=== PATIENT | female | born 1945 | race Caucasian/White ===

== ENCOUNTER → 2016-05-18 | Outpatient (CLI) | payer BC ==
[~2016-05-18] MED LIST: ASPI-650 PO; FURO-93 PO; GABA100C8 PO; LISI40TA PO; OXYC5CAP4 PO; REGADENOSON 0.4 MG/5 ML SYRINGE ONE; TRAM50TA2 PO; VERA240T86 PO
== END | disposition home or self-care (01) ==
LOC: CFH 07:54
PROVIDERS: ATTEND Internal Medicine Cardiovascular Disease
DX: I10 Essential (primary) hypertension (principal); R53.83 Other fatigue; R94.31 Abnormal electrocardiogram [ECG] [EKG]
CPT/HCPCS: 78452; 93017; A9502; J2785

== ENCOUNTER 2018-07-11 10:40 | Day surgery (SDC) | payer MEDICARE ==
[~2018-07-11] VITALS: Ht 168.9 cm; Wt 104.5 kg
[~2018-07-11 10:40] MED LIST changes: +GABA-826 PO; -GABA100C8 PO; +OXYC5CAP2 PO; -OXYC5CAP4 PO; -REGADENOSON 0.4 MG/5 ML SYRINGE ONE; +VERA240T10 PO; -VERA240T86 PO
[2018-07-11 11:24] VITALS: BP 144/85
[2018-07-11] MEDS ORDERED: POTA20TA14 PO (11:43)
[2018-07-11] MEDS ORDERED: RIVA20TA PO (11:43)
[2018-07-11] MEDS ORDERED: LABE100T6 PO (11:43)
[2018-07-11] MEDS ORDERED: HYDR25TA6 PO (11:43)
[2018-07-11] MEDS ORDERED: ASPI81TA45 PO (11:43)
[2018-07-11] MEDS ORDERED: VERA300C2 PO (11:43)
[2018-07-11 12:09] LABS: ANION GAP 6 mmol/L (5-15); CALCIUM 9.1 mg/dL (8.5-10.1); CHLORIDE 107 mmol/L (98-107); CREATININE 0.93 mg/dL (0.55-1.02)
[2018-07-11] MEDS ORDERED: PROPOFOL 10 MG/ML, 20ML ONE (13:05)
[2018-07-11] MEDS ORDERED: POTASSIUM CHLORIDE 20 MEQ TAB.ER.PRT ONE (13:13)
[2018-07-11] MEDS ORDERED: POTASSIUM CHLORIDE 20 MEQ TAB.ER.PRT PO ONE (14:00)
== END 2018-07-11 14:31 | disposition home or self-care (01) ==
LOC: CACL 10:40
PROVIDERS: ATTEND Internal Medicine Cardiovascular Disease
DX: I48.91 Unspecified atrial fibrillation (principal); I10 Essential (primary) hypertension; Z79.82 Long term (current) use of aspirin; Z88.0 Allergy status to penicillin; Z88.8 Allergy status to other drugs, medicaments and biological substances
CPT/HCPCS: 36415; 80048; 92960; J2704

== ENCOUNTER 2018-08-22 09:55 | Inpatient (IN) | payer MEDICARE ==
[~2018-08-22] VITALS: Ht 167.6 cm; Wt 110.8 kg
[~2018-08-22 09:55] MED LIST changes: +ASPI81TA45 PO; +HYDR25TA6 PO; +LABE100T6 PO; +POTA20TA14 PO; +RIVA20TA PO; +VERA300C2 PO
[2018-08-22] MEDS ORDERED: PLEASE ENTER HEIGHT AND WEIGHT MC SCH (11:00)
[2018-08-22 11:37] VITALS: BP 129/72
[2018-08-22 12:36] VITALS: BP 137/84
[2018-08-22] MEDS: SOTALOL 80MG TABLET PO SCH (13:03)
[2018-08-22 17:46] VITALS: BP 118/73
[2018-08-22] MEDS: LABETALOL 100 MG TABLET PO SCH ×2 (17:47→17:49)
[2018-08-22] MEDS: RIVAROXABAN 20 MG TABLET PO SCH (17:47)
[2018-08-22 20:00] VITALS: BP 120/62
[2018-08-23 00:23] VITALS: BP 116/73
[2018-08-23] MEDS: SOTALOL 80MG TABLET PO SCH ×3 (00:25→20:32)
[2018-08-23 06:46] VITALS: BP 101/66
[2018-08-23] MEDS ORDERED: LABETALOL 100 MG TABLET PO SCH (08:00)
[2018-08-23 08:21] VITALS: BP 133/67
[2018-08-23] MEDS: HYDROCHLOROTHIAZIDE 25 MG TABLET PO SCH ×2 (08:22→08:50)
[2018-08-23] MEDS: FUROSEMIDE 20 MG TABLET PO SCH (08:22)
[2018-08-23] MEDS: POTASSIUM CHLORIDE 20 MEQ TAB.ER.PRT PO SCH (08:22)
[2018-08-23 08:40] LABS: ANION GAP 4 mmol/L (5-15); CALCIUM 9.4 mg/dL (8.5-10.1); CHLORIDE 106 mmol/L (98-107); CREATININE 1.01 mg/dL (0.55-1.02)
[2018-08-23 13:19] VITALS: BP 113/62
[2018-08-23] MEDS: RIVAROXABAN 20 MG TABLET PO SCH (17:20)
[2018-08-23 19:37] VITALS: BP 110/71
[2018-08-24 04:35] VITALS: BP 115/76
[2018-08-24 05:55] VITALS: BP 120/82
[2018-08-24] MEDS: SOTALOL 80MG TABLET PO SCH ×2 (05:57→17:42)
[2018-08-24 06:57] VITALS: BP 106/65
[2018-08-24] MEDS: POTASSIUM CHLORIDE 20 MEQ TAB.ER.PRT PO SCH (08:53)
[2018-08-24] MEDS: FUROSEMIDE 20 MG TABLET PO SCH (08:53)
[2018-08-24 14:16] VITALS: BP 107/64
[2018-08-24] MEDS: RIVAROXABAN 20 MG TABLET PO SCH (17:42)
[2018-08-24 21:20] VITALS: BP 136/83
[2018-08-25 03:25] VITALS: BP 105/73
[2018-08-25] MEDS: SOTALOL 80MG TABLET PO SCH (05:54)
[2018-08-25] MEDS ORDERED: PROPOFOL 10 MG/ML, 20ML ONE (07:57)
[2018-08-25] MEDS: POTASSIUM CHLORIDE 20 MEQ TAB.ER.PRT PO SCH (09:04)
[2018-08-25] MEDS: FUROSEMIDE 20 MG TABLET PO SCH (09:04)
[2018-08-25 09:11] VITALS: BP 118/79
[2018-08-25] MEDS ORDERED: SOTA80TA18 PO (09:13)
== END 2018-08-25 10:30 | disposition home or self-care (01) | DRG 309 ==
LOC: 5SO 10:39 → DCLOUNGE 08-25 10:25
PROVIDERS: ADMIT Internal Medicine Cardiovascular Disease; ATTEND Internal Medicine Cardiovascular Disease
PROC: 5A2204Z Restoration of Cardiac Rhythm, Single (ICD-10-PCS; principal; 2018-08-22)
DX: I48.0 Paroxysmal atrial fibrillation (principal); D68.69 Other thrombophilia; Z96.643 Presence of artificial hip joint, bilateral; I10 Essential (primary) hypertension; E89.2 Postprocedural hypoparathyroidism; Z87.891 Personal history of nicotine dependence; Z88.0 Allergy status to penicillin; Z88.8 Allergy status to other drugs, medicaments and biological substances; Z90.710 Acquired absence of both cervix and uterus; Z90.49 Acquired absence of other specified parts of digestive tract; Z79.899 Other long term (current) drug therapy; Z88.6 Allergy status to analgesic agent; Z79.01 Long term (current) use of anticoagulants
CPT/HCPCS: 36415; 80048; 83735; 92960; 93005; G0378; J2704

== ENCOUNTER → 2019-02-09 | Outpatient (CLI) | payer MEDICARE ==
[~2019-02-09] MED LIST changes: +HYDR-3343 PO; +METH4TAB6 PO; +SOTA80TA PO; +SOTA80TA18 PO; +TIZA4CAP PO; -VERA300C2 PO; +VERA300C6 PO
[2019-02-09 10:06] LABS: ALBUMIN 3.8 g/dL (3.4-5.0); ANION GAP 8 mmol/L (5-15); CHLORIDE 106 mmol/L (98-107)
[2019-02-09 10:09] LABS: ALANINE AMINOTRANSFERASE 29 U/L (12-78); ALKALINE PHOSPHATASE 81 U/L (45-117); BILIRUBIN,TOTAL 1.5 mg/dL (0.2-1.0); CREATININE 0.89 mg/dL (0.55-1.02); TOTAL PROTEIN 7.3 g/dL (6.4-8.2)
== END | disposition home or self-care (01) ==
LOC: STAR 08:25
PROVIDERS: ATTEND Internal Medicine Gastroenterology
DX: Z01.818 Encounter for other preprocedural examination (principal); R00.1 Bradycardia, unspecified; Z86.010 Personal history of colon polyps
CPT/HCPCS: 36415; 80053; 93005

== ENCOUNTER 2019-02-16 09:56 | Day surgery (SDC) | payer MEDICARE ==
[~2019-02-16] VITALS: Ht 167.6 cm; Wt 108.5 kg
[2019-02-16] MEDS ORDERED: LACTATED RINGERS 1,000 ML IV SCH (10:40)
[2019-02-16 10:49] VITALS: BP 151/86
[2019-02-16] MEDS ORDERED: PLEASE ENTER HEIGHT AND WEIGHT MC SCH (11:00)
[2019-02-16] MEDS ORDERED: PROPOFOL 10 MG/ML, 20ML ONE (11:57)
[2019-02-16] MEDS ORDERED: ONDANSETRON 2MG/ML, 2ML ONE (11:57)
[2019-02-16] MEDS ORDERED: SUCCINYLCHOLINE 20 MG/ML, 10ML ONE (11:57)
[2019-02-16] MEDS ORDERED: ONDANSETRON 2MG/ML, 2ML IVPush PRN (12:30)
[2019-02-16] MEDS ORDERED: KETOROLAC 30 MG/1 ML IV PRN (12:30)
[2019-02-16] MEDS ORDERED: HYDROmorphone 1 MG/ML, 1ML INJ IV PRN (12:30)
[2019-02-16] MEDS ORDERED: hydrALAzine 20 MG/ML, 1ML IV PRN (12:30)
[2019-02-16] MEDS ORDERED: MEPERIDINE/PF 25MG/0.5ML IVPush PRN (12:30)
[2019-02-16] MEDS ORDERED: LABETALOL 5MG/ML, 20ML IV PRN (12:30)
[2019-02-16] MEDS ORDERED: ALBUTEROL SULFATE 2.5 MG/3 ML NPPB PRN (12:30)
[2019-02-16] MEDS ORDERED: METOCLOPRAMIDE 5 MG/ML, 2ML IV PRN (12:30)
[2019-02-16] MEDS ORDERED: OXYcodone 5 MG/5 ML ORAL.SOL UDC PO PRN (12:30)
[2019-02-16] MEDS ORDERED: PROMETHAZINE 25 MG/ML, 1ML IV PRN (12:30)
[2019-02-16] MEDS ORDERED: FENTANYL PF 100 MCG/2ML IV PRN (12:30)
== END 2019-02-16 14:15 | disposition home or self-care (01) ==
LOC: OUT 09:56
PROVIDERS: ATTEND Internal Medicine Gastroenterology
DX: Z12.11 Encounter for screening for malignant neoplasm of colon (principal); D12.2 Benign neoplasm of ascending colon; D12.0 Benign neoplasm of cecum; D12.5 Benign neoplasm of sigmoid colon; D12.3 Benign neoplasm of transverse colon; K57.30 Diverticulosis of large intestine without perforation or abscess without bleeding; K64.4 Residual hemorrhoidal skin tags; I10 Essential (primary) hypertension; I48.91 Unspecified atrial fibrillation; E66.3 Overweight; Z68.38 Body mass index [BMI] 38.0-38.9, adult; Z79.01 Long term (current) use of anticoagulants; Z79.899 Other long term (current) drug therapy; Z86.010 Personal history of colon polyps; Z88.0 Allergy status to penicillin; Z88.5 Allergy status to narcotic agent; Z88.8 Allergy status to other drugs, medicaments and biological substances; Z96.643 Presence of artificial hip joint, bilateral; Z90.710 Acquired absence of both cervix and uterus; Z90.49 Acquired absence of other specified parts of digestive tract; Z98.890 Other specified postprocedural states; Z80.0 Family history of malignant neoplasm of digestive organs
CPT/HCPCS: 45385; 88305; J0330; J2405; J2704

== ENCOUNTER 2019-03-07 10:31 | Outpatient (CLI) | payer MEDICARE ==
[2019-03-07 13:34] LABS: ANION GAP 6 mmol/L (5-15); CHLORIDE 108 mmol/L (98-107)
[2019-03-07 13:36] LABS: CREATININE 0.95 mg/dL (0.55-1.02)
[2019-04-09] MEDS ORDERED: ASCO500T9 PO (13:50)
== END 2019-03-07 23:59 | disposition home or self-care (01) ==
LOC: CFH 10:31
PROVIDERS: ATTEND Internal Medicine Cardiovascular Disease
DX: I10 Essential (primary) hypertension (principal); I48.91 Unspecified atrial fibrillation; R06.02 Shortness of breath; R93.1 Abnormal findings on diagnostic imaging of heart and coronary circulation; R94.31 Abnormal electrocardiogram [ECG] [EKG]
CPT/HCPCS: 36415; 80048

== ENCOUNTER 2019-04-03 12:35 | Inpatient (IN) | payer MEDICARE ==
[~2019-04-03] VITALS: Ht 167.6 cm; Wt 112.4 kg
[2019-04-03 13:19] LABS: BASOPHILS # (AUTO) 0.13 x10^3/uL (0-0.1); BASOPHILS % (AUTO) 1 % (0-1); EOSINOPHILS # (AUTO) 0.04 x10^3/uL (0-0.4); EOSINOPHILS % (AUTO) 1 % (1-7); LYMPHOCYTES # (AUTO) 1.71 x10^3/uL (1-3.4); LYMPHOCYTES % (AUTO) 18 % (22-44); MD NO; MEAN CORPUSCULAR HEMOGLOBIN 30.9 pg (27.0-34.8); MEAN CORPUSCULAR VOLUME 93.7 fL (80-100); MONOCYTES # (AUTO) 0.64 x10^3/uL (0.2-0.8); MONOCYTES % (AUTO) 7 % (2-9); NEUTROPHILS # (AUTO) 7.06 x10^3/uL (1.8-6.8); NEUTROPHILS % (AUTO) 74 % (42-75); PLATELET COUNT 157 x10^3/uL (130-400); RED CELL DISTRIBUTION WIDTH 15.9 % (9.6-15.2)
[2019-04-03 13:26] LABS: ALBUMIN 3.2 g/dL (3.4-5.0); ANION GAP 6 mmol/L (5-15); CALCIUM 8.8 mg/dL (8.5-10.1); CHLORIDE 106 mmol/L (98-107); CREATININE 0.92 mg/dL (0.55-1.02)
[2019-04-03] MEDS ORDERED: ALBUTEROL/IPRATROPIUM 2.5MG/0.5MG, 3 ML NPPB SCH (13:30)
[2019-04-03 13:35] LABS: TROPONIN I < 0.015 ng/mL (0.000-0.045)
--- NOTE | 2019-04-03 13:53 | NUR ---
first contact with pt. Pt states developed a cough-was seen by MD on cruise and diagnosed with Pneumonia. Pt states unable to get an appointment with PCP. pt c/o cough. pt's aox4. resps even and unlabored. all monitors in place. call light within reach.
--- NOTE | 2019-04-03 13:57 | NUR ---
RT AT BEDSIDE.
[2019-04-03] MEDS ORDERED: CEFTRIAXONE PMX 1GM/50ML 50 ML ONE (14:58)
[2019-04-03] MEDS ORDERED: SODIUM CHLORIDE FLUSH 10ML SYR IVF PRN (15:00)
[2019-04-03] MEDS ORDERED: CEFTRIAXONE PMX 1GM/50ML 50 ML IVPB ONE (15:00)
[2019-04-03] MEDS ORDERED: AZITHROMYCIN 500 MG in SODIUM CHLORIDE 0.9% 250 ML IVPB ONE (15:00)
--- NOTE | 2019-04-03 15:12 | NUR ---
WARM BLANCKETS GIVEN AT THIS TIME.
--- NOTE | 2019-04-03 15:22 | NUR ---
ABX INFUSING AT THIS TIME AFTER BLOOD CULTURE X 2. PT TOLERATED WELL.
[2019-04-03] MEDS ORDERED: DOXA4TAB3 PO (15:30)
[2019-04-03] MEDS ORDERED: HYDROCHLOROTH12.5 MG PO (15:31)
--- NOTE | 2019-04-03 16:37 | NUR ---
PT RESTING IN [facility]. RESPS EVEN AND UNLABORED. PT'S AOX4. ALL MONITORS IN PLACE. CALL LIGHT WITHIN REACH.
--- NOTE | 2019-04-03 16:49 | NUR ---
REPORT GIVEN TO MARIA VEGA. ALL QUESTIONS ANSWERED.
[2019-04-03] MEDS ORDERED: CEFTRIAXONE PMX 1GM/50ML 50 ML IV ONE (17:30)
[2019-04-03] MEDS ORDERED: morphine SULFATE 10 MG/ML, 1ML IVPush PRN (18:00)
[2019-04-03] MEDS ORDERED: POLYETHYLENE GLYCOL 17 GM PACKET PO PRN (18:00)
[2019-04-03] MEDS ORDERED: DOCUSATE 100 MG CAPSULE PO PRN (18:00)
[2019-04-03] MEDS ORDERED: PROMETHAZINE 25 MG/ML, 1ML IM PRN (18:00)
[2019-04-03] MEDS ORDERED: hydrALAzine 20 MG/ML, 1ML IVPush PRN (18:00)
[2019-04-03] MEDS ORDERED: ONDANSETRON 2MG/ML, 2ML IVPush PRN (18:00)
[2019-04-03] MEDS ORDERED: BISACODYL 10 MG SUPP PR PRN (18:00)
[2019-04-03] MEDS ORDERED: ONDANSETRON ODT 4 MG PO PRN (18:00)
[2019-04-03] MEDS ORDERED: SOTALOL 80MG TABLET ONE (18:06)
[2019-04-03] MEDS ORDERED: HYDROCHLOROTHIAZIDE 12.5 MG CAPSULE ONE (18:07)
[2019-04-03] MEDS ORDERED: POTASSIUM CHLORIDE 20 MEQ TAB.ER.PRT ONE (18:07)
[2019-04-03] MEDS ORDERED: RIVAROXABAN 20 MG TABLET ONE (18:07)
[2019-04-03] MEDS: HYDROCHLOROTHIAZIDE 12.5 MG CAPSULE PO SCH (18:14)
[2019-04-03] MEDS: POTASSIUM CHLORIDE 20 MEQ TAB.ER.PRT PO SCH (18:14)
[2019-04-03] MEDS: SOTALOL 80MG TABLET PO SCH (18:14)
[2019-04-03 18:37] LABS: FREE T4 (FREE THYROXINE) 1.3 ng/dL (0.76-1.46)
[2019-04-03 18:41] VITALS: BP 114/71
[2019-04-03] MEDS: DOXYCYCLINE 100MG TABLET PO SCH (20:13)
[2019-04-03] MEDS: GUAIFENESIN ER 600 MG TABLET PO SCH (20:13)
[2019-04-03] MEDS ORDERED: RIVAROXABAN 20 MG TABLET PO SCH (21:00)
[2019-04-04] MEDS ORDERED: OMNIPAQUE 350 MG/ML, 100ML BOTTLE ONE (00:19)
[2019-04-04 02:21] VITALS: BP 107/67
[2019-04-04 06:05] LABS: BASOPHILS # (AUTO) 0.01 x10^3/uL (0-0.1); BASOPHILS % (AUTO) 0 % (0-1); EOSINOPHILS # (AUTO) 0.05 x10^3/uL (0-0.4); EOSINOPHILS % (AUTO) 1 % (1-7); LYMPHOCYTES # (AUTO) 1.32 x10^3/uL (1-3.4); LYMPHOCYTES % (AUTO) 19 % (22-44); MD NO; MEAN CORPUSCULAR HEMOGLOBIN 31.1 pg (27.0-34.8); MEAN CORPUSCULAR HGB CONC 32.8 g/dL (32.4-35.8); MEAN CORPUSCULAR VOLUME 94.7 fL (80-100); MEAN PLATELET VOLUME 9.2 fL (7.4-10.4); MONOCYTES # (AUTO) 0.53 x10^3/uL (0.2-0.8); MONOCYTES % (AUTO) 8 % (2-9); NEUTROPHILS # (AUTO) 5.06 x10^3/uL (1.8-6.8); NEUTROPHILS % (AUTO) 73 % (42-75); PLATELET COUNT 143 x10^3/uL (130-400); RED BLOOD COUNT 3.37 x10^6/uL (3.82-5.3); RED CELL DISTRIBUTION WIDTH 16.1 % (9.6-15.2)
[2019-04-04 06:14] LABS: ALBUMIN 2.8 g/dL (3.4-5.0); ANION GAP 6 mmol/L (5-15); CALCIUM 8.4 mg/dL (8.5-10.1); CHLORIDE 104 mmol/L (98-107)
[2019-04-04 06:17] LABS: ALANINE AMINOTRANSFERASE 14 U/L (12-78); ALKALINE PHOSPHATASE 72 U/L (45-117); BILIRUBIN,TOTAL 0.9 mg/dL (0.2-1.0); CHOL/HDL RATIO 3.1; CHOLESTEROL, TOTAL 121 mg/dL (140-239); CREATININE 0.76 mg/dL (0.55-1.02); HDL CHOL % 32 % (28-40); HDL CHOLESTEROL (DIRECT) 39 mg/dL (40-60); LDL CHOLESTEROL,CALCULATED 67 mg/dL (54-169); LDL/HDL RATIO 1.7 (0.5-3.0); TOTAL PROTEIN 6.2 g/dL (6.4-8.2); TRIGLYCERIDES 77 mg/dL (50-200); VLDL CHOLESTEROL 15 mg/dL (0-25)
[2019-04-04 07:03] VITALS: BP 107/53
[2019-04-04] MEDS: GUAIFENESIN ER 600 MG TABLET PO SCH ×2 (08:36→20:35)
[2019-04-04] MEDS: HYDROCHLOROTHIAZIDE 12.5 MG CAPSULE PO SCH (08:37)
[2019-04-04] MEDS: SOTALOL 80MG TABLET PO SCH ×2 (08:37→20:35)
[2019-04-04] MEDS: POTASSIUM CHLORIDE 20 MEQ TAB.ER.PRT PO SCH ×2 (08:37→20:35)
[2019-04-04] MEDS: DOXAZOSIN 2MG TABLET PO SCH (08:38)
[2019-04-04] MEDS: DOXYCYCLINE 100MG TABLET PO SCH ×2 (08:38→20:34)
[2019-04-04 12:05] VITALS: BP 118/68
[2019-04-04] MEDS: CEFTRIAXONE PMX 2GM/50ML 50 ML IV SCH (14:08)
[2019-04-04 18:52] VITALS: BP 120/68
[2019-04-04] MEDS ORDERED: RIVAROXABAN 15 MG TABLET PO SCH (21:00)
[2019-04-05 01:33] VITALS: BP 123/64
[2019-04-05 05:25] LABS: BASOPHILS # (AUTO) 0.03 x10^3/uL (0-0.1); BASOPHILS % (AUTO) 0 % (0-1); EOSINOPHILS # (AUTO) 0.09 x10^3/uL (0-0.4); EOSINOPHILS % (AUTO) 2 % (1-7); LYMPHOCYTES # (AUTO) 1.41 x10^3/uL (1-3.4); LYMPHOCYTES % (AUTO) 24 % (22-44); MD NO; MEAN CORPUSCULAR HGB CONC 33.1 g/dL (32.4-35.8); MEAN CORPUSCULAR VOLUME 93.7 fL (80-100); MEAN PLATELET VOLUME 9.7 fL (7.4-10.4); MONOCYTES # (AUTO) 0.52 x10^3/uL (0.2-0.8); MONOCYTES % (AUTO) 9 % (2-9); NEUTROPHILS % (AUTO) 65 % (42-75); PLATELET COUNT 156 x10^3/uL (130-400); RED BLOOD COUNT 3.31 x10^6/uL (3.82-5.3); RED CELL DISTRIBUTION WIDTH 15.9 % (9.6-15.2)
[2019-04-05 05:35] LABS: CHLORIDE 106 mmol/L (98-107)
[2019-04-05 05:38] LABS: ANION GAP 6 mmol/L (5-15); CALCIUM 8.6 mg/dL (8.5-10.1); CREATININE 0.74 mg/dL (0.55-1.02)
[2019-04-05 07:08] VITALS: BP 130/62
[2019-04-05] MEDS: POTASSIUM CHLORIDE 20 MEQ TAB.ER.PRT PO SCH ×2 (08:11→19:59)
[2019-04-05] MEDS: GUAIFENESIN/COD200MG-20MG/10ML LIQUID PO SCH ×3 (08:12→19:59)
[2019-04-05] MEDS: HYDROCHLOROTHIAZIDE 12.5 MG CAPSULE PO SCH (08:12)
[2019-04-05] MEDS: SOTALOL 80MG TABLET PO SCH ×2 (08:12→20:00)
[2019-04-05] MEDS: DOXAZOSIN 2MG TABLET PO SCH (08:12)
[2019-04-05] MEDS: DOXYCYCLINE 100MG TABLET PO SCH ×2 (08:12→20:00)
[2019-04-05 12:38] VITALS: BP 124/66
[2019-04-05] MEDS: CEFTRIAXONE PMX 2GM/50ML 50 ML IV SCH (14:34)
[2019-04-05 18:45] VITALS: BP 124/68
[2019-04-05] MEDS: RIVAROXABAN 20 MG TABLET PO SCH (20:00)
[2019-04-06 00:26] VITALS: BP 144/82
[2019-04-06 07:28] VITALS: BP 128/69
[2019-04-06] MEDS: GUAIFENESIN/COD200MG-20MG/10ML LIQUID PO SCH ×3 (07:55→19:41)
[2019-04-06] MEDS: DOXAZOSIN 2MG TABLET PO SCH (07:55)
[2019-04-06] MEDS: DOXYCYCLINE 100MG TABLET PO SCH ×2 (07:56→19:42)
[2019-04-06] MEDS: HYDROCHLOROTHIAZIDE 12.5 MG CAPSULE PO SCH (07:56)
[2019-04-06] MEDS: SOTALOL 80MG TABLET PO SCH ×2 (07:56→19:42)
[2019-04-06] MEDS: POTASSIUM CHLORIDE 20 MEQ TAB.ER.PRT PO SCH ×2 (07:56→19:41)
[2019-04-06 10:38] LABS: TROPONIN I < 0.015 ng/mL (0.000-0.045)
[2019-04-06 13:55] VITALS: BP 116/68
[2019-04-06] MEDS: CEFTRIAXONE PMX 2GM/50ML 50 ML IV SCH (14:45)
[2019-04-06] MEDS ORDERED: CEFDINIR 300 MG CAPSULE PO SCH (19:00)
[2019-04-06 19:22] VITALS: BP 132/79
[2019-04-06] MEDS: RIVAROXABAN 20 MG TABLET PO SCH (19:42)
[2019-04-07 00:55] VITALS: BP 127/58
[2019-04-07] MEDS: CEFDINIR 300 MG CAPSULE PO SCH ×2 (06:34→18:33)
[2019-04-07 07:07] VITALS: BP 131/73
[2019-04-07] MEDS: GUAIFENESIN/COD200MG-20MG/10ML LIQUID PO SCH ×4 (09:18→20:05)
[2019-04-07] MEDS: HYDROCHLOROTHIAZIDE 12.5 MG CAPSULE PO SCH (09:19)
[2019-04-07] MEDS: DOXYCYCLINE 100MG TABLET PO SCH ×2 (09:19→20:06)
[2019-04-07] MEDS: DOXAZOSIN 2MG TABLET PO SCH (09:19)
[2019-04-07] MEDS: POTASSIUM CHLORIDE 20 MEQ TAB.ER.PRT PO SCH ×2 (09:19→20:06)
[2019-04-07] MEDS: SOTALOL 80MG TABLET PO SCH ×2 (09:22→20:06)
[2019-04-07 12:50] VITALS: BP 120/68
[2019-04-07] MEDS: ACETAMINOPHEN 325 MG TABLET PO PRN (15:16)
[2019-04-07 19:14] VITALS: BP 111/67
[2019-04-07] MEDS: RIVAROXABAN 20 MG TABLET PO SCH (20:06)
[2019-04-08 00:47] VITALS: BP 108/68
[2019-04-08] MEDS: CEFDINIR 300 MG CAPSULE PO SCH ×2 (06:34→18:16)
[2019-04-08] MEDS: GUAIFENESIN/COD200MG-20MG/10ML LIQUID PO SCH ×4 (06:34→21:01)
[2019-04-08 06:46] VITALS: BP 118/71
[2019-04-08] MEDS: DOXYCYCLINE 100MG TABLET PO SCH ×2 (08:04→21:00)
[2019-04-08] MEDS: SOTALOL 80MG TABLET PO SCH ×2 (08:04→21:00)
[2019-04-08] MEDS: POTASSIUM CHLORIDE 20 MEQ TAB.ER.PRT PO SCH ×2 (08:04→21:00)
[2019-04-08] MEDS: DOXAZOSIN 2MG TABLET PO SCH (08:04)
[2019-04-08] MEDS: HYDROCHLOROTHIAZIDE 12.5 MG CAPSULE PO SCH (08:04)
[2019-04-08] MEDS: CHOLECALCIFEROL 400 UNITS TABLET PO SCH ×2 (13:47→16:19)
[2019-04-08] MEDS: ASCORBIC ACID 500 MG TABLET PO SCH ×2 (13:47→18:16)
[2019-04-08 18:54] VITALS: BP 117/68
[2019-04-08] MEDS: RIVAROXABAN 20 MG TABLET PO SCH (21:00)
[2019-04-09 02:03] VITALS: BP 119/69
[2019-04-09] MEDS: GUAIFENESIN/COD200MG-20MG/10ML LIQUID PO SCH ×4 (06:29→20:13)
[2019-04-09 07:02] VITALS: BP 104/63
[2019-04-09] MEDS: POTASSIUM CHLORIDE 20 MEQ TAB.ER.PRT PO SCH ×2 (08:01→20:13)
[2019-04-09] MEDS: DOXYCYCLINE 100MG TABLET PO SCH ×2 (08:01→20:13)
[2019-04-09] MEDS: MULTIVITS,STRESS FORMULA 1 TABLET PO SCH (08:01)
[2019-04-09] MEDS: HYDROCHLOROTHIAZIDE 12.5 MG CAPSULE PO SCH (08:02)
[2019-04-09] MEDS: CEFDINIR 300 MG CAPSULE PO SCH ×2 (08:02→17:56)
[2019-04-09] MEDS: SOTALOL 80MG TABLET PO SCH ×2 (08:02→20:13)
[2019-04-09] MEDS: ASCORBIC ACID 500 MG TABLET PO SCH ×2 (08:02→17:57)
[2019-04-09] MEDS: DOXAZOSIN 2MG TABLET PO SCH (08:03)
[2019-04-09 12:12] VITALS: BP 119/70
[2019-04-09] MEDS ORDERED: DOXY100T PO (13:50)
[2019-04-09] MEDS ORDERED: ASCO500T6 PO (13:50)
[2019-04-09] MEDS ORDERED: CEFD300C37 PO (13:50)
[2019-04-09] MEDS ORDERED: Guaifenesin/Cod200mg-20MG/10ML PO (13:52)
[2019-04-09] MEDS: CHOLECALCIFEROL 400 UNITS TABLET PO SCH (15:40)
[2019-04-09 19:28] VITALS: BP 120/49
[2019-04-09] MEDS: RIVAROXABAN 20 MG TABLET PO SCH (20:13)
[2019-04-10 02:58] VITALS: BP 105/66
[2019-04-10] MEDS: CEFDINIR 300 MG CAPSULE PO SCH (06:20)
[2019-04-10] MEDS: GUAIFENESIN/COD200MG-20MG/10ML LIQUID PO SCH ×2 (06:20→09:55)
[2019-04-10 07:05] VITALS: BP 117/69
[2019-04-10] MEDS: SOTALOL 80MG TABLET PO SCH (07:52)
[2019-04-10] MEDS: POTASSIUM CHLORIDE 20 MEQ TAB.ER.PRT PO SCH (07:53)
[2019-04-10] MEDS: HYDROCHLOROTHIAZIDE 12.5 MG CAPSULE PO SCH (07:53)
[2019-04-10] MEDS: DOXAZOSIN 2MG TABLET PO SCH (07:54)
[2019-04-10] MEDS: MULTIVITS,STRESS FORMULA 1 TABLET PO SCH (07:54)
[2019-04-10] MEDS: DOXYCYCLINE 100MG TABLET PO SCH (07:54)
[2019-04-10] MEDS: ASCORBIC ACID 500 MG TABLET PO SCH (07:55)
[2019-04-10] MEDS ORDERED: FUROSEMIDE 20 MG TABLET PO SCH (09:00)
[2019-04-10] MEDS: ACETAMINOPHEN 325 MG TABLET PO PRN (09:42)
== END 2019-04-10 10:39 | disposition home or self-care (01) | DRG 193 ==
LOC: ED 14:24 → 3N 14:46 → ED 14:46 → 4NE 17:20 → 3N 17:22
PROVIDERS: ADMIT Internal Medicine; ATTEND Family Medicine
DX: J15.9 Unspecified bacterial pneumonia (principal); J96.01 Acute respiratory failure with hypoxia; I48.20 Chronic atrial fibrillation, unspecified; D68.69 Other thrombophilia; Z88.0 Allergy status to penicillin; Z88.8 Allergy status to other drugs, medicaments and biological substances; I10 Essential (primary) hypertension; K57.30 Diverticulosis of large intestine without perforation or abscess without bleeding; Z79.01 Long term (current) use of anticoagulants; Z80.0 Family history of malignant neoplasm of digestive organs; Z90.710 Acquired absence of both cervix and uterus; Z96.643 Presence of artificial hip joint, bilateral; J40 Bronchitis, not specified as acute or chronic; J98.01 Acute bronchospasm
CPT/HCPCS: 36415; 71046; 71275; 80048; 80053; 80061; 82040; 83036; 83605; 83735; 83880; 84100; 84439; 84443; 84484; 85025; 87040; 87070; 87205; 93005; 96365; G0378; J0696; Q9967

== ENCOUNTER → 2019-04-26 | Outpatient (CLI) | payer MEDICARE ==
[~2019-04-26] MED LIST changes: +ASCO500T6 PO; +CEFD300C37 PO; +DOXA4TAB3 PO; +DOXY100T PO; +Guaifenesin/Cod200mg-20MG/10ML PO; +HYDROCHLOROTH12.5 MG PO; +REGADENOSON 0.4 MG/5 ML SYRINGE ONE
== END | disposition home or self-care (01) ==
LOC: CFH 08:17
PROVIDERS: ATTEND Internal Medicine Cardiovascular Disease
DX: R94.31 Abnormal electrocardiogram [ECG] [EKG] (principal); R06.02 Shortness of breath; I10 Essential (primary) hypertension
CPT/HCPCS: 78452; 93017; A9502; J2785

== ENCOUNTER → 2019-08-02 | Outpatient (CLI) | payer MEDICARE ==
[~2019-08-02] MED LIST changes: -ASCO500T6 PO; +ASCO500T9 PO; -REGADENOSON 0.4 MG/5 ML SYRINGE ONE
== END | disposition home or self-care (01) ==
LOC: CFH 08:56
PROVIDERS: ATTEND Nurse Practitioner Family
DX: R91.8 Other nonspecific abnormal finding of lung field (principal); M47.814 Spondylosis without myelopathy or radiculopathy, thoracic region
CPT/HCPCS: 71250

== ENCOUNTER 2019-08-21 12:30 | Outpatient (CLI) | payer MEDICARE | END 2019-08-21 23:59 | disposition home or self-care (01) | LOC: CARD 12:30 | PROVIDERS: ATTEND Internal Medicine Cardiovascular Disease | DX: R06.02 Shortness of breath (principal) | CPT/HCPCS: 94060; 94726; 94729 ==

== ENCOUNTER → 2019-08-24 | Outpatient (CLI) | payer MEDICARE | END | disposition home or self-care (01) | LOC: CFH 12:35 | PROVIDERS: ATTEND Internal Medicine Cardiovascular Disease | DX: I08.8 Other rheumatic multiple valve diseases (principal); I10 Essential (primary) hypertension; I48.91 Unspecified atrial fibrillation; Z79.01 Long term (current) use of anticoagulants | CPT/HCPCS: 93306 ==

== ENCOUNTER → 2019-11-09 | Outpatient (CLI) | payer MEDICARE | END | disposition home or self-care (01) | LOC: CFH 08:00 | PROVIDERS: ATTEND Nurse Practitioner Family | DX: R91.8 Other nonspecific abnormal finding of lung field (principal) | CPT/HCPCS: 71250 ==

== ENCOUNTER → 2020-05-24 | Outpatient (CLI) | payer MEDICARE ==
[~2020-05-24] MED LIST changes: -ASPI-650 PO; +ASPI325T20 PO; -LISI40TA PO; +LISI40TA9 PO; +REGADENOSON 0.4 MG/5 ML SYRINGE ONE
== END | disposition home or self-care (01) ==
LOC: RAD 10:56
PROVIDERS: ATTEND Internal Medicine Cardiovascular Disease
DX: R07.9 Chest pain, unspecified (principal); R53.82 Chronic fatigue, unspecified
CPT/HCPCS: 78452; 93017; A9502; J2785

== ENCOUNTER → 2020-07-31 | Outpatient (CLI) | payer MEDICARE ==
[~2020-07-31] MED LIST changes: -REGADENOSON 0.4 MG/5 ML SYRINGE ONE
== END | disposition home or self-care (01) ==
LOC: CFH 10:02
PROVIDERS: ATTEND Internal Medicine
DX: R91.8 Other nonspecific abnormal finding of lung field (principal); I51.7 Cardiomegaly; E04.9 Nontoxic goiter, unspecified; M51.34 Other intervertebral disc degeneration, thoracic region; J98.4 Other disorders of lung
CPT/HCPCS: 71250

== ENCOUNTER 2020-10-29 10:47 | Outpatient (CLI) | payer MEDICARE ==
[~2020-10-29 10:47] MED LIST changes: -VERA240T10 PO; +VERA240T28 PO
== END 2020-10-29 23:59 | disposition home or self-care (01) ==
LOC: CFH 10:47
PROVIDERS: ATTEND Internal Medicine
DX: R91.8 Other nonspecific abnormal finding of lung field (principal); J84.10 Pulmonary fibrosis, unspecified
CPT/HCPCS: 71250